=== PATIENT | female | born 1950 | race Caucasian/White ===

== ENCOUNTER 2017-03-19 11:48 | Emergency (ER) | payer OTHER ==
[2017-03-19 12:08] VITALS: TEMP 97.7
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
[2017-03-19] MEDS ORDERED: LET GEL TOPICAL 1 EA SYR TP ONE (12:31)
[2017-03-19] MEDS ORDERED: TDAP ADULT 0.5 ML INJ (BOOSTRIX) IM ONE (12:51)
[2017-03-19 13:13] VITALS: BP 151/63; PULSE 85; RESP 16; O2SAT 98
== END 2017-03-19 13:12 | disposition home or self-care (01) ==
LOC: EDUNIT#
DX: S42.035A Nondisplaced fracture of lateral end of left clavicle, initial encounter for closed fracture (principal); Z23 Encounter for immunization; V18.0XXA Pedal cycle driver injured in noncollision transport accident in nontraffic accident, initial encounter; Y99.8 Other external cause status; Y93.55 Activity, bike riding
CPT/HCPCS: 73030; 90471; 90715; 99283; A4565